=== PATIENT | male | born 1940 | race Hispanic/Latino ===

== ENCOUNTER 2016-08-29 06:35 | Observation (INO) | payer MEDICARE ==
[2016-08-29 07:40] LABS: Basophils % (Auto) 0.3 % (0.0-1.8); Hematocrit 46.1 % (35.5-45.6); Hemoglobin 15.4 gm/dl (11.8-15.2); Mean Corpuscular HGB Conc 34 % (32-34); Mean Corpuscular Hemoglobin 28 pg (28-32); Mean Corpuscular Volume 83 fl (84-94); Platelet Count 193 K/mm3 (140-440); Red Blood Count 5.55 M/mm3 (3.65-5.03); Red Cell Distribution Width 14.5 % (13.2-15.2); White Blood Count 6.7 K/mm3 (4.5-11.0)
[2016-08-29 07:52] LABS: INR 1.05 (0.87-1.13)
[2016-08-29] MEDS ORDERED: NACL 0.9% 500 ML 500 ML IV SCH (08:00)
[2016-08-29] MEDS ORDERED: ECOTRIN PO NR (08:00)
[2016-08-29] MEDS ORDERED: CALAN ONE (08:13)
[2016-08-29] MEDS ORDERED: HEPARIN/NS 5000 UNIT/500ML(CATH LAB) 1,000 ML IR ONE (08:13)
[2016-08-29 08:25] LABS: Anion Gap 18 mmol/L; BUN/Creatinine Ratio 18.75; Blood Urea Nitrogen 15 mg/dL (9-20); Calcium 8.8 mg/dL (8.4-10.2); Carbon Dioxide 23 mmol/L (22-30); Chloride 103.3 mmol/L (98-107); Glucose 119 mg/dL (75-100); Potassium 4.1 mmol/L (3.6-5.0); Sodium 140 mmol/L (137-145)
[2016-08-29] MEDS: HEPARIN 10,000 UNITS/10 ML ONE ×2 (08:52→08:57)
[2016-08-29] MEDS: XYLOCAINE 2% INFILTRATI ONE ×2 (08:52→08:56)
[2016-08-29] MEDS: VERSED ONE ×3 (08:52→09:41)
[2016-08-29] MEDS: SUBLIMAZE ONE ×3 (08:52→09:28)
[2016-08-29] MEDS: NITROGLYCERIN SYRINGE 3 ML ONE ×2 (08:53→08:57)
[2016-08-29] MEDS ORDERED: NACL 0.9% 50 ML ONE (09:23)
[2016-08-29] MEDS ORDERED: HEPARIN/NS 5000 UNIT/500ML(CATH LAB) 500 ML IR ONE (09:35)
[2016-08-29] MEDS ORDERED: EFFIENT PO ONE (09:45)
[2016-08-29] MEDS: ANGIOMAX IV ONE ×2 (09:58→10:00)
--- NOTE | 2016-08-29 10:10 | Prelim Cardiac Cath Report ---
Preliminary Cath Report - Hemodynamic Findings Aorta(AO): 120/80 Left Ventricular(LV): 120/16 - Other Findings Estimated blood loss: none Dominance: right Coronary Anatomy: Conclusions: 1. CAD - 80-90% eccentric mid RCA (culprit) w/ kang 2 flow successful IVUS-guided pci w placement of MELYSSA (resolute 3.0 18mm) with excellent final angiographic and ultrasonographic results - 50-60% mid-LAD (smooth, kang 3 flow) * medical managemt 2. Nl lv fxn (55-60%) 3. No as 4. nl lvedp plan: aggressive rf mod dapt, statin Recommendations: PCI
[2016-08-29] MEDS ORDERED: ZOFRAN IV PRN (11:15)
[2016-08-29] MEDS ORDERED: TYLENOL PO PRN (11:15)
[2016-08-30 06:32] LABS: Basophils % (Auto) 0.3 % (0.0-1.8); Eosinophils % (Auto) 1.8 % (0.0-4.3); Hematocrit 44.8 % (35.5-45.6); Hemoglobin 14.6 gm/dl (11.8-15.2); Mean Corpuscular HGB Conc 33 % (32-34); Mean Corpuscular Hemoglobin 27 pg (28-32); Mean Corpuscular Volume 83 fl (84-94); Platelet Count 182 K/mm3 (140-440); Red Blood Count 5.39 M/mm3 (3.65-5.03); Red Cell Distribution Width 14.6 % (13.2-15.2); White Blood Count 6.6 K/mm3 (4.5-11.0)
[2016-08-30 06:55] LABS: Creatine Kinase MB 1.3 ng/mL (0.0-4.0)
[2016-08-30 06:58] LABS: BUN/Creatinine Ratio 16.66; Blood Urea Nitrogen 15 mg/dL (9-20); Calcium 8.6 mg/dL (8.4-10.2); Carbon Dioxide 28 mmol/L (22-30); Creatine Kinase 49 units/L (55-170); Glucose 134 mg/dL (75-100)
[2016-08-30 06:59] LABS: Anion Gap 12 mmol/L; Chloride 103.3 mmol/L (98-107); Potassium 3.9 mmol/L (3.6-5.0); Sodium 139 mmol/L (137-145)
--- NOTE | 2016-08-30 08:37 | XRay Report ---
CHEST ONE VIEW INDICATION: Post PCI. COMPARISON: None similar. FINDINGS: Portable, single, frontal chest radiograph demonstrates normal cardiomediastinal silhouette. Clear lungs. Right hemidiaphragm slightly elevated and scalloped. Questionable hiatal hernia. Unremarkable bones. Extrinsic EKG leads. CONCLUSION: No acute disease in the chest. Thank you for the opportunity to participate in this patient's care.
[2016-08-30] MEDS ORDERED: SYNTHROID PO SCH (10:00)
[2016-08-30] MEDS ORDERED: ASPIRIN PO SCH (10:00)
[2016-08-30 10:03] VITALS: BP 128/62
--- NOTE | 2016-08-30 10:55 | Short Stay Summary ---
Short Stay Documentation Date of service: 08/30/16 - Allergies and Medications Current Medications: Allergies FLU SHOT Allergy (Uncoded 08/29/16 06:37) Unknown Home Medications Medication Instructions Recorded Confirmed Last Taken Type Esomeprazole Magnesium [NexIUM] 40 mg PO BID 08/29/16 08/29/16 08/28/16 History Levothyroxine [Synthroid] 75 mcg PO QAM 08/29/16 08/29/16 08/28/16 History Active Medications Acetaminophen (Tylenol) 325 mg PO Q6H PRN PRN Reason: Pain, Mild (1-3) Aspirin (Aspirin) 325 mg PO QDAY [facility] Last Admin: 08/30/16 09:51 Dose: 325 mg Atorvastatin Calcium (Lipitor) 80 mg PO QHS [facility] Last Admin: 08/29/16 21:34 Dose: 80 mg Levothyroxine Sodium (Synthroid) 75 mcg PO QAM [facility] Last Admin: 08/30/16 09:52 Dose: 75 mcg Ondansetron HCl (Zofran) 4 mg IV Q4H PRN PRN Reason: Nausea And Vomiting Prasugrel (Effient) 10 mg PO QDAY [facility] - Brief post op/procedure progress note Date of procedure: 08/29/16 Pre-op diagnosis: chest pain Post-op diagnosis: other (CAD) Procedure: LHC with PCI of RCA - see cath report Anesthesia: local Estimated blood loss: none Pathology: none Condition: stable - Hospital course Hospital course: Pt presented for elective scheduled LHC indicated for unstable angina and successfully underwent PCI of RCA per Dr. Estrada Guzman. He was admitted for overnight observation. He remained clinically and hemodynamically stable throughout his procedure and recovery and is cleared for discharge home today on ASA 325, effient, & lipitor. BB held at this time d/t borderline bradycardia and low normal BPs. - Disposition Condition at discharge: Stable Disposition: [id number] TO HOME OR SELFCARE - Discharge Diagnoses (1) Unstable angina Status: Resolved (2) CAD (coronary artery disease) Status: Chronic Qualifiers: Coronary Disease-Associated Artery/Lesion type: C [place] vs. transplanted heart: N Associated angina: A (3) Stented coronary artery Status: Chronic Short Stay Discharge Plan Activity: advance as tolerated Diet: low fat, low cholesterol, low salt Wound: open to air, keep clean and dry Follow up with: HAJA RING MD [Primary Care Provider] - 7 Days VIRY MORROW MD [Staff Physician] - 7 Days ([place] office on 2016 @ 8:45AM) Prescriptions: AtorvaSTATin [Lipitor] 80 mg PO QHS #30 tablet Prasugrel [Effient] 10 mg PO QDAY #30 tablet
[2016-08-30] MEDS ORDERED: EFFIENT PO SCH (11:09)
--- NOTE | 2016-08-30 12:21 | Admit Criteria Form ---
Admission Criteria Documentation: TELEMETRY CARE Telemetry Admission Guidelines (Place 'X' for any and all applicable criteria): Admission to telemetry [A] may be indicated for ANY ONE of the following(1)(2)(3 )(4)(5): [ X]I. Cardiac disease, including ANY ONE of the following (9)(10)(11)(12)( 13): [ ]a) Postacute NC [ ]b) Low-risk patients with ST-segment elevation NC who have undergone successful percutaneous coronary intervention [ ]c) Unstable angina [ ]d) Suspected NC (until it is ruled out) [ ]e) Post cardiac surgery (first 48 to 72 hours unless complications occur) [ ]f) Acute arrhythmias (including significant tachycardia or bradycardia) [B] [ ]g) Firing of an implantable cardioverter defibrillator [C] [ ]h) Suspected pacemaker or implantable cardioverter defibrillator malfunction (10) [ ]i) New administration or adjustment of an antiarrhythmic drug [D ] [ ]j) Child admitted for acute congestive heart failure [ ]j) Long QT syndrome [ ]k) Advanced heart block (eg, second-degree Mobitz type II, third- degree heart block) [ ]l) Acute myocarditis or pericarditis [X ]m) Short-term (ambulatory or inpatient) monitoring after a cardiac procedure as indicated by ANY ONE of the following [E]: [ ]i) Electrophysiologic studies [X ]ii) Percutaneous coronary intervention with stent placement [ ]iii) Pacemaker placement with cardiac conduction defect [ ]iv) Implantable cardiac defibrillator placement [ ]II. Drug overdose or poisoning with substance that causes arrhythmias or QT prolongation (eg, phenothiazines, sympathomimetic agents, cyclic antidepressants, digitalis, antiarrhythmic drugs)(15) [ ]III. Short-term (ambulatory or inpatient) monitoring after therapeutic or diagnostic procedure requiring conscious sedation or anesthesia (eg, endoscopy, elective cardioversion) [ ]IV. Acute cerebrovascular even[F](18) [ ]V. Massive blood transfusion (eg, at least 10 units of packed red blood cells in 24 hours) [ ]. Variceal bleeding after endoscopy, sclerotherapy, or IV vasopressin [ ]VII. Uncorrected electrolyte abnormalities associated with an increased risk of dangerous arrhythmia [G]; examples include [ ]a) Hyperkalemia with attributable ECG changes [ ]b) Potassium greater than 6.5 mmol/L (mEq/L) in a patient without history of chronic renal disease [ ]c) Prolonged QT attributed to hypokalemia, hypomagnesemia, or hypocalcemia [ ]VIII.Unexplained syncope or other neurologic event suspected of being due to arrhythmia due to a finding that increases risk; examples include(19)(20)(21): [ ]a) High-risk ECG findings (eg, bifascicular block, bradycardia, abnormal QT interval, ventricular pre- excitation) [ ]b) History of previous syncope due to arrhythmia [ ]c) Abnormal ventricular function (eg, reduced ejection fraction ) [ ]d) Exertional or supine syncope [ ]e) Concerning syncope characteristics (eg, sudden loss of consciousness without prodrome) [ ]f) Family history of sudden [ ]g) Use of arrhythmogenic medication [ ]h) Suspected cardiac ischemia [ ]i) Known channelopathy (eg, long QT syndrome, Brugada syndrome, or catecholaminergic paroxysmal ventricular tachycardia) [ ]j) Known structural heart disease (eg, hypertrophic cardiomyopathy , severe valvular disease) [ ]k) Palpitations preceding syncope The original [employer] content created by [employer] has been revised. The portions of the content which have been revised are identified through the use of italic text or in bold, and [email or web address] has neither reviewed nor approved the modified material. All other unmodified content is copyright [employer]. Please see references footnoted in the original [employer] edition 2016 Admission Criteria Met: Yes
== END 2016-08-30 12:51 | disposition home or self-care (01) ==
LOC: OPU 06:35 → 4A 11:09
PROVIDERS: ADMIT Internal Medicine; ATTEND Internal Medicine
DX: I25.110 Atherosclerotic heart disease of native coronary artery with unstable angina pectoris (principal); I44.0 Atrioventricular block, first degree; R94.31 Abnormal electrocardiogram [ECG] [EKG]; F52.21 Male erectile disorder; E03.9 Hypothyroidism, unspecified; Z85.46 Personal history of malignant neoplasm of prostate; Z01.810 Encounter for preprocedural cardiovascular examination; Z87.891 Personal history of nicotine dependence; Z82.49 Family history of ischemic heart disease and other diseases of the circulatory system; Z81.8 Family history of other mental and behavioral disorders
CPT/HCPCS: 36415; 71010; 80048; 82550; 82553; 84484; 85025; 85347; 85610; 85730; 92978; 93005; 93010; 93458; A9270; C1725; C1753; C1769; C1874; C1887; C1894; C9600; G0378; J0583; J1644; J2250; J3010; J7040; 92928; Q9967